=== PATIENT | male | born 1935 | race Caucasian/White ===

== ENCOUNTER → 2017-06-21 | Outpatient (CLI) | payer MEDICARE, BC ==
[~2017-06-21] MED LIST: ALEN70SO PO; ALEN70TA43 PO; ASPI-1471 PO; ASPI-715 PO; Acetaminophen PO; CALC250T7 PO; CEP500 PO; CHOL10005 PO; CHOL400T29 PO; FAM20 PO; FLUT16SP19 NS; FLUT16SP20 NS; LOR5/325 PO; MELO-149 PO; MELO-205 PO; METH500T6 PO; MULT-1 PO; MULT-27 PO; ONDA4TAB97 PO; PHENA200 PO; RIV10 PO; SIMV-42 PO; SIMV-49 PO; TAMS0.4C70 PO; TAMS0.4C76 PO; VITA-200 PO; fiber therapy; tums
--- NOTE | 2017-06-21 10:34 | RADIOLOGY IMAGING REPORT ---
FACILITY: [facility] [place] PATIENT NAME: Montana Paula : 1935 MR: [id number] V: [id number] EXAM DATE: ORDERING PHYSICIAN: ALMA VAIL TECHNOLOGIST: Location: [facility] Patient: Montana Paula : 1935 Visit/Account:[id number] Date of Sevice: 06/21/2017 KNEE 3 VIEW LEFT, KNEE 3 VIEW RIGHT Indication: Bilateral knee pain Comparison: None available Findings: No evidence of fracture, dislocation, or acute osseous abnormality of the left and right knees. Bilaterally, there is mild to moderate narrowing of the lateral femoral tibial joint space. Mild sub chondral sclerosis is noted involving the lateral tibial plateaus bilaterally. The medial compartmen ts are well preserved. Moderate degenerative changes seen involving the patellofemoral joint. No evidence of joint effusion bilaterally. There is no focal soft tissue abnormality. No evidence of radiopaque foreign body. IMPRESSION: 1. Moderate degenerative changes seen involving the lateral femoral tibial joint space and patellofe moral joint spaces bilaterally. No acute abnormality seen Report Dictated By: Victor Manuel Ponce at 06/21/2017 10:24 AM Report E-Signed By: Victor Manuel Ponce at 06/21/2017 10:30 AM WSN:[email or web address]
--- NOTE | 2017-06-21 10:34 | RADIOLOGY IMAGING REPORT ---
FACILITY: [facility] PATIENT NAME: Montana Paula : 1935 MR: [id number] V: [id number] EXAM DATE: ORDERING PHYSICIAN: ALMA VAIL TECHNOLOGIST: Location: [facility] Patient: Montana Paula : 1935 Visit/Account:[id number] Date of Sevice: 06/21/2017 KNEE 3 VIEW LEFT, KNEE 3 VIEW RIGHT Indication: Bilateral knee pain Comparison: None available Findings: No evidence of fracture, dislocation, or acute osseous abnormality of the left and right knees. Bilaterally, there is mild to moderate narrowing of the lateral femoral tibial joint space. Mild sub chondral sclerosis is noted involving the lateral tibial plateaus bilaterally. The medial compartmen ts are well preserved. Moderate degenerative changes seen involving the patellofemoral joint. No evidence of joint effusion bilaterally. There is no focal soft tissue abnormality. No evidence of radiopaque foreign body. IMPRESSION: 1. Moderate degenerative changes seen involving the lateral femoral tibial joint space and patellofe moral joint spaces bilaterally. No acute abnormality seen Report Dictated By: Victor Manuel Ponce at 06/21/2017 10:24 AM Report E-Signed By: Victor Manuel Ponce at 06/21/2017 10:30 AM WSN:[email or web address]
== END ==
LOC: RAD 08:30
PROVIDERS: ATTEND Internal Medicine
DX: M17.0 Bilateral primary osteoarthritis of knee (principal)

== ENCOUNTER 2017-07-31 13:00 | Outpatient (RCR) | payer MEDICARE, BC ==
--- NOTE | 2017-06-26 15:15 | PT INITIAL EVALUATION ---
MEDICAL DIAGNOSIS: M25.561 B knee pain TREATMENT DIAGNOSIS: Same DATE OF ONSET: 04/02/17 SUBJECTIVE: Montana Paula (Wes) presents to PT for B knee pain, insidious onset two months ago. He started Fall Prevention exercise class at the [facility] and finds the sit to stand exercises create knee pain and edema 5/10, 0- 10 pain scale. B knee x-rays are positive for patellofemoral and lateral compartment moderate OA. Knee FOTO 36% impairment. Pain location is B posterior/ lateral knees and patellofemoral joints and described as ache, edema. Pain scale is 5 on a ten point pain scale. Pain is worse with stairs, sit to stand transfers, getting up from the floor and better with rest. 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 OBJECTIVE: Posture: B valgus knees, ~25 degrees. ROM: A/PROM knees, in degrees: R 20/10 - 128/130, L 15/10 -130/132, painful end ROM flexion B. NWB foot ROM: rear foot R 10 deg. everted, L 4 deg. everted fore foot B valgus, R with PF first ray Strength: Eccentric quad strength squat R 93 degrees, L 80 degrees. Strong VMO contraction with quad set, B. Palpation: Boggy, moderate edema B popliteal fossa and suprapatellar recesses. L popliteal fossa is full but no cyst is palpable. Special Tests: Negative hip scour B, L ANDRZEJ <50%. Valgus/varus stress tests negative for laxity, positive for lateral compartment loading with valgus tests , B. Mobility: Reduced B hips and knees joint mobility, patellofemoral joint glides are painful. Gait: Reduced knee extension at heel strike, pronation beyond midstance from B fore foot valgus mechanics. Balance: NT today. Other Objective Findings: Tight IT bands, hamstrings B. ASSESSMENT: Pascual Paula presents with B knee OA, foot mechanics, tightness affecting knee pain and edema, gait. He had less pain and edema after e-stim and ice. Short Term Goals/Patient's Goals 4 weeks: Pascual performs 1 minutes of rapid sit to stand exercise without B knee pain, sleeps through the night without B knee pain. PLAN: Patient to be seen for Manual Therapy Strengthening/condition Ice/Heat Range of Motion Stretching Electrical Stim Gait Trg/Balance Trg Home Exercise Program Orthotic eval,cast,adjust 2x/Week for 4 Weeks Thank you for this referral. If you have any questions, comments, or concerns about this report or plan, please contact me at . ARTUROD
--- NOTE | 2017-07-20 11:03 | PT PLAN OF CARE ---
Physician: Dr. Chidi Hinds Patient is being seen: 2x/week Therapist: Myra Mcclain PT Medical Diagnosis: M25.561 B knee pain Treatment Diagnosis: Same Date of Onset: 04/02/17 Date of Initial Evaluation: 06/26/17 Date patient was last seen: 07/20/17 Number of treatments: 8 Number of cancellations/No shows: 0 INTERVENTIONS: B knee ROM, Stretching, E-stim, Ice, HEP GOALS/PATIENT'S GOAL: 4 weeks: Pascual performs 1 minutes of rapid sit to stand exercise without B knee pain (not met), sleeps through the night without B knee pain (progressing) Patient Compliance: Excellent Prognosis: Excellent Reasons for continuing therapy: S: Pascual rates B knee pain ~3/10 with stair use, is avoiding rapid knee movement in Balance class at [facility]. Knee FOTO 33% impairment. B knee pain at night is reduced O: Posture: B valgus knees, ~25 degrees. L patella is ~1/2" lateral on the lateral femoral condyle. ROM: A/PROM knees, in degrees: R 10/10 - 128/130, L 10/10 -130/132, painful end ROM flexion B. Strength: Strong VMO contraction with quad set, B, but lateral tracking patella B.. Palpation: Mild edema B popliteal fossa and suprapatellar recesses Mobility: Reduced B hips and knees joint mobility, patellofemoral joint glides are painful, L at 35 degrees is severely hypomobile, R moderately hypomobile. A/P: Pascual Paula hasn't improved pain with stair use, is improving at night and still has hypomobile knee joints. If you agree, I'd like to try more joint mobilization for another month to work to toward goals set, 2x/week for 4 weeks. Thank you. MIR
--- NOTE | 2017-07-31 15:20 | PT PLAN OF CARE ---
Physician: Dr. Chidi Hinds Patient is being seen: 2x/week Therapist: Myra Mcclain, PT Medical Diagnosis: M25.561 B knee pain Treatment Diagnosis: Same Date of Onset: 04/02/17 Date of Initial Evaluation: 06/26/17 Date patient was last seen: 07/31/17 Number of treatments: 10 Number of cancellations/No shows: 0 INTERVENTIONS: Patellofemoral Manual Therapy, Stretching, Electrical Stim, Home Exercise Program, Orthotic adjust GOALS/PATIENT'S GOAL: 4 weeks: Pascual performs 1 minutes of rapid sit to stand exercise without B knee pain (not met), sleeps through the night without B knee pain (partially met, some nights without knee pain). Patient Compliance: Excellent Prognosis: Excellent Reasons for discontinuing therapy: S: Pascual requests DC from PT as his stair use and exercise function haven't improved with knee pain still 06/09. Knee FOTO 38%, not significantly changed. O:ROM: AROM knees, in degrees: R 20 - 128, L 15 -136, painful end ROM flexion B. Strength: Quads 5/5. Strong VMO contraction with quad set, B. Palpation: Mild edema L knee. Mobility: Patellofemoral joint glides are densely hypomobile and medial glide is painful. A/P: Pascual Paula isn't progressing with PT. An orthopaedic consult may be warranted. I'll DC PT to HEP. Thank you. MIR
== END 2017-07-31 18:00 | disposition home or self-care (01) ==
LOC: PT 13:00
PROVIDERS: ATTEND Internal Medicine
DX: M25.561 Pain in right knee (principal); M25.562 Pain in left knee; I10 Essential (primary) hypertension; M85.811 Other specified disorders of bone density and structure, right shoulder; M17.4 Other bilateral secondary osteoarthritis of knee; Z86.711 Personal history of pulmonary embolism
CPT/HCPCS: 97010; 97110; 97140; 97162; G0283

== ENCOUNTER → 2017-10-11 | Outpatient (CLI) | payer MEDICARE, BC ==
[~2017-10-11] MED LIST changes: +CHOL400T31 PO; +PANT40TA65 PO
--- NOTE | 2017-10-11 15:08 | RADIOLOGY IMAGING REPORT ---
FACILITY: [facility] - [place] PATIENT NAME: Montana Paula : 1935 MR: [id number] V: [id number] EXAM DATE: ORDERING PHYSICIAN: ALMA VAIL TECHNOLOGIST: Location: [facility] Patient: Montana Paula : 1935 Visit/Account:[id number] Date of Sevice: 10/11/2017 CHEST PA AND LAT Indication: cough Comparison: Chest x-ray 03/25/2014 Findings: Lungs: Prominent interstitial markings both lung bases are unchanged. There is no focal airspace op[place] city. Mediastinum/pulmonary vasculature: Heart size and pulmonary vasculature are normal. Bones/soft tissues: Normal. IMPRESSION: Prominent interstitial changes both lung bases, stable from 03/25/2014. Report Dictated By: Petr Casas at 10/11/2017 3:04 PM Report E-Signed By: Petr Casas at 10/11/2017 3:05 PM WSN:[email or web address]
--- NOTE | 2017-10-11 15:08 | RADIOLOGY IMAGING REPORT ---
FACILITY: [facility] [place] PATIENT NAME: Montana Paula : 1935 MR: [id number] V: [id number] EXAM DATE: ORDERING PHYSICIAN: ALMA VAIL TECHNOLOGIST: Location: [facility] [place] Patient: Montana Paula : 1935 Visit/Account:[id number] Date of Sevice: 10/11/2017 DEXA Scan Clinical history: Osteopenia. Comparison: DEXA scan from DEXA scan 10/23/2011. LUMBAR SPINE: The bone mineral density (BMD) measured from L2-L4 correlates with a Z-score 1.5 and a T-score of 1. 0 which is Normal as defined by the World Health Organization. The corresponding risk of fracture in the lumbar spine is Not increased compared with a young adult reference population. This value has increased by 1.6 % since the prior study. More than 5% change is considered significant. HIP: Bone mineral density (BMD) measured in the left femoral neck region correlates with a Z-score -1.0 an d a T-score of -2.4 which is osteopenia as defined by the World Health Organization. The correspondi ng risk of fracture in the hip is increased compared with a young adult reference population. This to ladarius hip value has increase by 1.3 % since the prior study. More than 5% change is considered signifi cant. Bone mineral density (BMD) measured in the Femoral Neck region measures 0.755 g/cm2. FOREARM: The bone mineral density (BMD) measured in the ULTRADISTAL right forearm, where trabecular bone predo minates, correlates with a Z-score 0.4 and a T-score of -0.8 which is normal as defined by the World Health Organization. The corresponding risk of fracture in the distal forearm is not increased ricardo red with a young adult reference population. The bone mineral density (BMD) in the MIDSHAFT of the forearm, where cortical bone predominates, renee elates with a Z-score 0 and a T-score of -1.2 which is osteopenia as defined by the World Health Orga nization. The corresponding risk of fracture in the midshaft of the forearm is increased compared wit h a young adult reference population. IMPRESSION: 1. Left Hip: Osteopenia. There has been increase in the total hip bone mineral density since the pr evious exam. 2. Femoral Neck: Bone Mineral Density is 0.755 g/cm2 3. Left Forearm: Osteopenia. 4. . Lumbar spine: Normal. There has been increase in the bone mineral density since the previous e xam. The next DEXA scan of this patient should include the following sites: L1-L4 and the left forearm. FRAX? WHO Fracture Risk Assessment Tool link: <http://www.shef.ac.uk/FRAX/tool.jsp?locationValue=9> PLEASE NOTE: 1) The World Health Organization defines low BMD as follows: T-score Normal > -1 Osteopenia < -1 and > -2.5 Osteoporosis < -2.5 without fractures Established osteoporosis < -2.5 with fractures 2) In general, you may wish to consider: Diagnosis Treatment Follow-up DEXA Normal BMD Prevention 2-3 years Osteopenia Prevention/therapy 1-2 years Osteoporosis Therapy Yearly 3) Fracture risk estimated from the T-score is more accurate for vertebral fractures (often spontane ous) than for hip fractures. Report Dictated By: Petr Casas at 10/11/2017 2:55 PM Report E-Signed By: Petr Casas at 10/11/2017 3:04 PM SLADEN:MIKHAIL
== END ==
LOC: RAD 10:05
PROVIDERS: ATTEND Internal Medicine
DX: M85.89 Other specified disorders of bone density and structure, multiple sites (principal); R91.8 Other nonspecific abnormal finding of lung field
CPT/HCPCS: 71046; 77080

== ENCOUNTER → 2017-11-29 | Outpatient (CLI) | payer MEDICARE, BC | LOC: RESP 01:21 | PROVIDERS: ATTEND Internal Medicine | DX: R05 Cough (principal); R06.09 Other forms of dyspnea | CPT/HCPCS: 94060; 94726; 94729 ==

== ENCOUNTER → 2018-07-18 | Outpatient (CLI) | payer MEDICARE, BC ==
[~2018-07-18] MED LIST changes: +PRED20TA6 PO
--- NOTE | 2018-07-18 14:17 | EKG ---
[facility] PATIENT NAME: STEVE GARCIA : [id number] MR: [id number] V: [id number] EXAM DATE: ORDERING PHYSICIAN: ALMA VAIL TECHNOLOGIST: LUIS Test Reason : SOB Blood Pressure : / mmHG Vent. Rate : 064 BPM Atrial Rate : 064 BPM P-R Int : 150 ms QRS Dur : 086 ms QT Int : 412 ms P-R-T Axes : 073 025 044 degrees QTc Int : 425 ms Normal sinus rhythm Normal ECG When compared with ECG of 28-SEP-2015 20:56, No significant change was found Referred By: KEISHA WOODS Confirmed By:
== END ==
LOC: RESP 14:09
PROVIDERS: ATTEND Internal Medicine
DX: Z02.9 Encounter for administrative examinations, unspecified (principal)

== ENCOUNTER → 2018-07-24 | Outpatient (CLI) | payer MEDICARE, BC ==
--- NOTE | 2018-07-25 19:48 | RT HOLTER TEST ---
FACILITY: [facility] [place] PATIENT NAME: STEVE GARCIA : [id number] MR: [id number] V: [id number] EXAM DATE: ORDERING PHYSICIAN: ALMA VAIL TECHNOLOGIST: HERNAN Hook-up date: 2018-07-24 11:12:00 Duration: 24:09:00 Test Indications: PVCs Medications: N/A 404249 QRS complexes 24413 Ventricular ectopics which represent 26 % of total QRS comp. 82 Supraventricular ectopics which represent <1 % of total QRS comp. * Paced QRS complexes which represent % of total QRS comp. VENTRICULAR ECTOPY 51722 Isolated 9267 Bigeminal Cycles 1636 Couplets 32 Runs 99 Beats in Runs 5 Beats LONGEST at 124 BPM at 20:58:58 2018-07-24 3 Beats FASTEST at 172 BPM at 19:42:54 2018-07-24 SUPRAVENTRICULAR ECTOPY 55 Isolated 3 Couplets 4 Runs 21 Beats in Runs 7 Beats LONGEST at 198 BPM at 16:11:50 2018-07-24 7 Beats FASTEST at 198 BPM at 16:11:50 2018-07-24 HEART RATES 52 MIN at 22:39:25 2018-07-24 72 AVG 198 MAX at 16:11:51 2018-07-24 LONGEST RR 1.768 secs at 23:07:58 2018-07-24 S-T LEVELS Channel 1 -12.800 mm MIN at 11:12:00 2018-07-24 -12.800 mm MAX at 11:12:00 2018-07-24 Channel 2 -12.800 mm MIN at 11:12:00 2018-07-24 -12.800 mm MAX at 11:12:00 2018-07-24 Channel 3 -12.800 mm MIN at 11:12:00 2018-07-24 -12.800 mm MAX at 11:12:00 2018-07-24 Study dominated by normal sinus rhythm with frequent PVC. Infrequent SVE noted. Frequent PVC occuring in bigeminy, couplets, longest run 5 beats. Positive holter study. Confirmed by Jim Victoria ([id number]) on 07/25/2018 7:48:05 PM Referred By: Overread By: Jim Lion
== END ==
LOC: US 00:22
PROVIDERS: ATTEND Internal Medicine
DX: I51.7 Cardiomegaly (principal); I49.3 Ventricular premature depolarization
CPT/HCPCS: 93225; 93226; 93306

== ENCOUNTER → 2018-08-09 | Outpatient (CLI) | payer MEDICARE, BC ==
--- NOTE | 2018-08-09 09:57 | RADIOLOGY IMAGING REPORT ---
FACILITY: [facility] PATIENT NAME: Montana Paula : 1935 MR: [id number] V: [id number] EXAM DATE: ORDERING PHYSICIAN: ALMA VAIL TECHNOLOGIST: Location: Patient: Montana Paula : 1935 Visit/Account:[id number] Date of Sevice: 08/09/2018 CHEST PA LAT COMPARISONS: 2 view chest dated October 11, 2017 ADDITIONAL PERTINENT HISTORY: Pulmonary hypertension with dyspnea on exertion FINDINGS: Cardiomediastinal silhouette: Negative. Pulmonary vasculature: Enlargement of the pulmonary arterial structures concerning for underlying pu lmonary arterial hypertension. Lung berry: Background interstitial scarring in both lung bases with mild hyperexpansion of the alex g berry. Pleural spaces: Negative. Osseous structures: Continued mild loss of height at multiple levels along the thoracic spine. Surrounding soft tissues: Negative. IMPRESSION: 1. Hyperexpanded lung berry with background interstitial scarring. 2. Findings concerning for underlying pulmonary arterial hypertension. Report Dictated By: Enrique Simmons MD at 08/09/2018 9:47 AM Report E-Signed By: Enrique Simmons MD at 08/09/2018 9:52 AM WSN:[email or web address]
--- NOTE | 2018-08-09 17:40 | RADIOLOGY IMAGING REPORT ---
[place] [facility] [place] Paula : 1935 MR: [id number] V: [id number] EXAM DATE: ORDERING PHYSICIAN: ALMA VAIL TECHNOLOGIST: Location: [facility] [place] Patient: Montana Paula : 1935 Visit/Account:[id number] Date of Sevice: 08/09/2018 NM VENTILATION & PERFUSION HISTORY: Pulm hypertension TECHNIQUE: 27.0 mCi DTPA gas was administered by inhalation. Static, re-breathing and washout images were obtain ed. 1.9 mCi Tc MAA was injected intravenously. Gamma camera images were obtained of the chest in various orientations. COMPARISON: None. FINDINGS: Lung perfusion radiotracer distribution: No significant defects Lung ventilation radiotracer distribution: No significant defects Ventilation washout images: No significant residual radiotracer Correlation to chest x-ray: No infiltrate, effusion or evidence of CHF. IMPRESSION: Normal VQ scan Report Dictated By: Victor Manuel Ponce at 08/09/2018 5:25 PM Report E-Signed By: Victor Manuel Ponce at 08/09/2018 5:35 PM WSN:[email or web address]
== END ==
LOC: NUC 02:23
PROVIDERS: ATTEND Internal Medicine
DX: I49.3 Ventricular premature depolarization (principal); I27.20 Pulmonary hypertension, unspecified; R06.09 Other forms of dyspnea
CPT/HCPCS: 71046; 78582; A9540; A9567

== ENCOUNTER → 2018-08-10 | Outpatient (CLI) | payer MEDICARE, BC | LOC: RESP 20:54 | PROVIDERS: ATTEND Internal Medicine | DX: G47.33 Obstructive sleep apnea (adult) (pediatric) (principal); G47.37 Central sleep apnea in conditions classified elsewhere; G47.36 Sleep related hypoventilation in conditions classified elsewhere ==

== ENCOUNTER → 2018-08-31 | Outpatient (CLI) | payer MEDICARE, BC | LOC: RESP 19:47 | PROVIDERS: ATTEND Internal Medicine | DX: G47.33 Obstructive sleep apnea (adult) (pediatric) (principal); G47.37 Central sleep apnea in conditions classified elsewhere ==

== ENCOUNTER → 2018-09-10 | Outpatient (CLI) | payer MEDICARE, BC | LOC: RESP 00:58 | PROVIDERS: ATTEND Internal Medicine | DX: J84.9 Interstitial pulmonary disease, unspecified (principal); J43.9 Emphysema, unspecified | CPT/HCPCS: 94060; 94726; 94729 ==